=== PATIENT | male | born 1980 | race Caucasian/White ===

== ENCOUNTER → 2020-08-17 08:19 | Outpatient (CLI) | payer OTHER, MEDICAID, SELFPAY ==
--- NOTE | 2020-08-17 09:38 | DI.CT.S_ITS ---
PROCEDURE: CT CHEST ABD PEL W CON INDICATIONS: abdominal pain/luts TECHNIQUE: After the administration of oral and intravenous contrast, 5 mm thick sections acquired from the lung apices to the symphysis. 5 mm coronal and sagittal reformats were performed, with additional 7 mm coronal MIP reformats through the lungs. For radiation dose reduction, the following was used: automated exposure control, adjustment of mA and/or kV according to patient size. COMPARISON: None. FINDINGS: Image quality: Excellent. CHEST: Lungs and pleura: No acute airspace opacities. No pleural effusions or pneumothorax. Central and peripheral airways appear patent and normal in caliber. Mediastinum: Heart size is normal. No pericardial effusion. No mediastinal or hilar adenopathy by size criteria. Thoracic aorta and central pulmonary arteries are normal in size. Esophagus is normal in caliber. No hiatal hernia. Chest wall: No axillary or supraclavicular adenopathy by size criteria. Thyroid gland is normal where visualized. ABDOMEN: Solid organs: Liver is mildly enlarged measuring 21.1 centimeters in long axis. Liver is normal in enhancement. Focal fatty infiltration of the liver noted adjacent to the falciform ligament. Gallbladder contains small gallstones. Biliary system is non dilated. Pancreas enhances normally. Spleen is enlarged measuring 14.6 centimeters and long axis. No focal mass lesions identified in the spleen. Spleen demonstrates normal postcontrast enhancement. No adrenal nodules. Kidneys demonstrate normal size and enhancement, without hydronephrosis. Peritoneum and bowel: Bowel loops demonstrate normal wall thickness and caliber. Few scattered colonic diverticuli without definite diverticulitis. Anastomotic sutures noted at the junction of the sigmoid colon and rectum. No free fluid or air. Nodes and vessels: No retroperitoneal or mesenteric adenopathy by size criteria. Aorta and inferior vena cava are normal in size. Scattered atherosclerotic calcifications involving the abdominal and pelvic vasculature. Miscellaneous: No ventral hernias. PELVIS: Genitourinary: Bladder wall thickness is normal. Prostate is mildly enlarged measuring 4.1 centimeters x 5.8 centimeters. Prostatic calcifications noted. Miscellaneous: No inguinal hernias or adenopathy. Bones: No suspicious bony lesions. No vertebral body compression fractures. IMPRESSION: 1. No acute disease process. 2. Mild hepatosplenomegaly. 3. Cholelithiasis. 4. Colonic diverticulosis without evidence of diverticulitis. 5. No free fluid or free air. 6. No lung consolidation or pleural effusions. 7. No dilated loops of bowel. 8. No lymphadenopathy based on size criteria. Dictated by: Vianca Hopson MD, PhD on 08/17/2020 at 9:26 Approved by: Vianca Hopson MD, PhD on 08/17/2020 at 10:03
== END ==
PROVIDERS: Family Provider Family Medicine; PCP Family Medicine; Referring Provider Family Medicine; Visit Provider Specialist
DX: R10.9 Unspecified abdominal pain (principal); R39.9 Unspecified symptoms and signs involving the genitourinary system; R16.2 Hepatomegaly with splenomegaly, not elsewhere classified; K80.20 Calculus of gallbladder without cholecystitis without obstruction; K57.90 Diverticulosis of intestine, part unspecified, without perforation or abscess without bleeding
CPT/HCPCS: 71260; 74177; Q9967

== ENCOUNTER → 2020-09-21 14:17 | Outpatient (CLI) | payer OTHER, MEDICAID, SELFPAY ==
[2020-09-21 16:50] LABS: Prostate Specific Antigen 1.37 ng/mL (0.10-4.00)
== END ==
PROVIDERS: Family Provider Family Medicine; PCP Family Medicine; Referring Provider Specialist; Visit Provider Specialist
DX: R97.20 Elevated prostate specific antigen [PSA] (principal)
CPT/HCPCS: 36415; 84153

== ENCOUNTER → 2020-09-28 12:45 | Outpatient (CLI) | payer OTHER, MEDICAID, SELFPAY | PROVIDERS: Family Provider Family Medicine; PCP Family Medicine; Visit Provider Specialist | DX: N39.0 Urinary tract infection, site not specified (principal); R39.9 Unspecified symptoms and signs involving the genitourinary system; N39.43 Post-void dribbling | CPT/HCPCS: 52000; 81002; 87086; 99213 ==

== ENCOUNTER → 2020-10-21 10:21 | Outpatient (CLI) | payer OTHER, MEDICAID, SELFPAY ==
[2020-10-21 11:49] LABS: COVID19 -Nasal RAPID Negative (Negative)
== END ==
PROVIDERS: Family Provider Family Medicine; PCP Family Medicine; Visit Provider Surgery
DX: Z20.822 Contact with and (suspected) exposure to COVID-19 (principal)
CPT/HCPCS: 87635; C9803

== ENCOUNTER 2020-10-22 14:06 | Day surgery (SDC) | payer OTHER, MEDICAID, SELFPAY ==
[2020-10-22] VITALS (7 sets, daily range): BP systolic 118–132; BP diastolic 80–87; PULSE 60–78; RESP 12–16; TEMP 36.5–36.7; O2SAT 93–100; BMI 24.3
--- NOTE | 2020-10-22 | PATH_ITS ---
[facility] Accession Number: [id number] . 01 Material submitted: . body - RANDOM BIOPSIES . 02 Diagnosis: Random Biopsies: Colonic mucosa with no diagnostic abnormality. Negative for active, chronic, and microscopic colitis. Negative for dysplasia and malignancy. . MRV 10/26/2020 1038 Local . 02 Electronically signed: . Tawana Hernandez MD, Pathologist NPI- [id number] . 01 Gross description: . RANDOM BIOPSIES: Received in formalin are 3 fragment(s) of rodgers, soft tissue measuring 0.1 x 0.1 x 0.1 cm to 0.3 x 0.2 x 0.2 cm submitted entirely in 1 cassette(s) /ZACHARIAH 10/23/2020 2319 Local . 02 Pathologist provided ICD-10: K62.1 . 02 CPT . 788547 Performed at: 01 [facility] [address], [place], [place] [id number] MD Joaquin Aguilar MD Phone: [phone] Performed at: 02 [facility] [address] [place], [place] [id number] MD Pia Ferraro MD Phone: [phone]
--- NOTE | 2020-10-22 15:48 | PM.PREOP ---
Pre-operative Note Interval Note History & Physical reviewed/Exam performed by Physician: Yes Changes to H&P: No
--- NOTE | 2020-10-22 16:24 | PM.OP.ENDO ---
Operative Date/Time/Diagnoses Date of procedure: 10/22/20 Time of procedure: 16:24 Pre-op diagnosis: rectal bleeding Post-op diagnosis: same Procedure & Clinicians Study performed: colonoscopy Same procedure as scheduled: Yes Indications: 40M with abdodminal pain and rectal bleeding Surgeon: Favian Watkins Procedure Notes Procedure in detail: Medications: Conscious sedation using 10mg IV midazolam and 200mcg IV of fentanyl The history and physical was performed/updated and the patient is ASA class is *2 The procedure was discussed in detail with the patient. Potential risks complications including infection, bleeding, missed diagnosis, perforation, need for surgery, and were explained. Their questions were answered and informed consent was obtained. Patient was brought to the procedure room and placed standard monitoring equipment. The patient's vital signs were monitored continuously throughout the entire procedure. Prior to starting time-out was performed. The patient was placed in the left lateral recumbent position. Procedural sedation was administered. Examination began with a thorough inspection of the perianal area there was no evidence of fissures, fistulae, external hemorrhoids or cutaneous malignancy. The colonoscopy scope was then placed into the anal canal and was advanced to the cecum, which was identified by the ileocecal valve, the appendiceal orifice and the confluence of the taenia. The scope was then slowly withdrawn examining colon thoroughly in all directions, irrigating it of any residual stool. No masses or polyps Sigmoid anastamosis patent Diverticulosis Grade 2 hemorrhoids Random colonic biopsies taken No obvious colitis No active hemorrhage The patient tolerated the procedure well. They will be discharged once criteria are met. The prep was of good/excellent quality. The withdrawl time was 7 minutes. The sedation time was 22 minutes. Specimen(s): other (random colonic biopsies) Complications: none Impression: Hemorrhoids Post-procedure Recommendations: High fiber diet, Will call with biopsy results and Other recommendation (can consider hemorrhoid banding if persistent bleeding) Disposition: same day surgery
[2020-10-22] MEDS: fentaNYL 250 MCG/5 ML INJ IV (16:26)
[2020-10-22] MEDS: MIDAZOLAM 5 MG/5 ML VIAL IV (16:27)
== END 2020-10-22 17:05 | disposition home or self-care (01) ==
PROVIDERS: Family Provider Family Medicine; PCP Family Medicine; Referring Provider Surgery; Visit Provider Surgery
PROC: 0DJD8ZZ Inspection of Lower Intestinal Tract, Via Natural or Artificial Opening Endoscopic (ICD-10-PCS; CPT 45378; principal; 2020-10-22 15:15)
DX: K57.30 Diverticulosis of large intestine without perforation or abscess without bleeding (principal); K64.1 Second degree hemorrhoids
CPT/HCPCS: 45380; 99152; J2250; J3010

== ENCOUNTER 2021-01-04 11:45 | Day surgery (SDC) | payer OTHER, MEDICAID, SELFPAY ==
[2020-12-31 08:25] VITALS: BMI 23.9
[2021-01-04] VITALS (11 sets, daily range): BP systolic 126–154; BP diastolic 78–99; PULSE 65–96; RESP 8–16; TEMP 36.2–36.7; O2SAT 66–99; BMI 23.9
--- NOTE | 2021-01-04 | PATH_ITS ---
[facility] Accession Number: [id number] . 01 Material submitted: . prostate - PROSTATE CHIPS . 02 Diagnosis: Prostate, Chips, TURP: Benign prostatic glands and stroma, and urothelial mucosa with no evidence of neoplasm. V 01/06/2021 1203 Local . 02 Electronically signed: . Pia Ferraro MD, Pathologist NPI- [id number] . 01 Gross description: . The specimen is received in formalin, labeled prostate chips and consists of an 8-gram, 5.0 x 4.0 x 1.0 cm aggregate of rodgers-pink partially cauterized fragments of soft tissue, which is entirely submitted in cassettes A1-A2. (EA:cmc10 [id number]) /V 01/05/2021 1152 Local . 02 Pathologist provided ICD-10: N32.0 . 02 CPT . 884501 Performed at: 01 [facility] [address] [id number] MD Joaquin Aguilar MD Phone: [phone] Performed at: [facility] [address] [place], [place] [id number] MD Pia Ferraro MD Phone: [phone]
--- NOTE | 2021-01-04 11:48 | PM.PREOP ---
Pre-operative Note Interval Note History & Physical reviewed/Exam performed by Physician: Yes Changes to H&P: No
[2021-01-04 12:52] LABS: COVID19 -Nasal RAPID Negative (Negative)
[2021-01-04] MEDS: LACTATED RINGERS 1,000 ML 42 ML IV (13:11)
--- NOTE | 2021-01-04 13:41 | SUR.OPER ---
Lithotomy on padded OR bed, head on pillow, arms secured on padded arm boards at <90 degrees abduction. Legs secured in padded yellow fins stirrups.
[2021-01-04] MEDS: CEFAZOLIN 1 GM VIAL 2 GM IV (13:44)
[2021-01-04] MEDS: BELLADONNA/OPIUM SUPPOSITORIES 1 EACH PR (13:45)
--- NOTE | 2021-01-04 14:19 | P.OP_ITS ---
Operative Date/Time/Diagnoses Date of procedure: 01/04/21 Time of procedure: 14:20 Pre-op diagnosis: Bladder outlet obstruction Post-op diagnosis: same Procedure & Clinicians Procedure: 1. Transurethral resection of prostate Same procedure as scheduled: Yes Indications: Bladder outlet obstruction Surgeon: Sachin Jenkins Click Yes if Unassisted: Yes Anesthesia Type: General Operative Notes Findings: 1. Urethra-normal caliber without annular stricture or lesion. 2. External sphincter-coapted. 3. Fbisqofs-4-2.5 cm length with elevated median bar and moderate lateral lobe hyperplasia. Numerous small calculi recovered during resection of the prostate. 4. Bladder-1+ trabeculation. Normal ureteral orifices bilaterally. No stone, tumor, or foreign body seen. Closure Type: not applicable Specimen(s): other (Prostate chips) Applied: catheter (Number [address] [place]o catheter.) Estimated Blood Loss (mL): 3 Blood products transfused: none Procedure in detail: The patient was positioned supine and administered general anesthesia. He was then repositioned semi lithotomy and the lower abdomen, genitalia, and groin were prepped and draped sterile fashion. Twenty-five Syriac resectoscope was then passed lower urinary tract with the findings as described above. The sheath was then fitted with can element and resection loop. TUR of the median bar and lateral lobes was then conducted from the bladder neck to verumontanum. At no point was resection taken more distal than the verumontanum nor deeper than the surgical capsule. The anterior tissue was left unresected. All chips were then collected with the [employer] evacuator and manually with the resecting loop. The bladder was then partially filled and the resectoscope removed. A [address] hematuria catheter was then inserted and lower urinary track. The balloon was inflated to 30 cc. The catheter was placed to gravity drainage. The patient was then repositioned in supine, was awakened, and transferred to a respanola for transportation to recovery. Complications: none Post-operative Condition: stable Disposition: PACU Plan for aftercare: Discharge home
[2021-01-04] MEDS: OXYCODONE IR 5 MG TABLET PO ×2 (14:41→15:14)
[2021-01-04] MEDS: LIDOCAINE 2% (GLYDO) 6 ML GEL TOP (14:53)
[2021-01-04] MEDS: fentaNYL 100 MCG/2 ML INJ IV ×2 (14:58→15:04)
== END 2021-01-04 15:49 | disposition home or self-care (01) ==
PROVIDERS: PCP Family Medicine; Referring Provider Specialist; Visit Provider Specialist
PROC: 0VT08ZZ Resection of Prostate, Via Natural or Artificial Opening Endoscopic (ICD-10-PCS; CPT 52601; principal; 2021-01-04 13:15)
DX: N32.0 Bladder-neck obstruction (principal); Z20.822 Contact with and (suspected) exposure to COVID-19
CPT/HCPCS: 52601; 87635; J0690; J1100; J2405; J2704; J3010

== ENCOUNTER → 2021-02-09 16:11 | Outpatient (CLI) | payer OTHER, MEDICAID, SELFPAY | PROVIDERS: PCP Family Medicine; Visit Provider Specialist | DX: R30.0 Dysuria (principal); Z48.89 Encounter for other specified surgical aftercare | CPT/HCPCS: 81002; 87086 ==

== ENCOUNTER → 2021-03-01 09:43 | Outpatient (CLI) | payer OTHER, MEDICAID, SELFPAY ==
[2021-03-01 12:13] LABS: COVID19 -Nasal RAPID Negative (Negative)
== END ==
PROVIDERS: PCP Family Medicine; Visit Provider Surgery
DX: Z20.822 Contact with and (suspected) exposure to COVID-19 (principal)
CPT/HCPCS: 87635; C9803

== ENCOUNTER 2021-03-02 06:38 | Day surgery (SDC) | payer OTHER, MEDICAID, SELFPAY ==
[2021-02-18 14:39] VITALS: BMI 25.1
[2021-03-02] VITALS (11 sets, daily range): BP systolic 135–158; BP diastolic 62–104; PULSE 83–101; RESP 14–20; TEMP 36.4–37.1; O2SAT 94–98; BMI 25.1
--- NOTE | 2021-03-02 | PATH_ITS ---
[facility] Accession Number: [id number] . 01 Material submitted: . gallbladder - GALLBLADDER . 02 Diagnosis: Gallbladder, Cholecystectomy: Chronic cholecystitis with cholelithiasis. Negative for dysplasia and malignancy. V 03/04/2021 1017 Local . 02 Electronically signed: . Pia Ferraro MD, Pathologist NPI- [id number] . 01 Gross description: . The specimen is received in formalin, labeled gallbladder and consists of a 6.0 x 3.1 x 2.0 cm previously disrupted gallbladder with a 0.2 cm in diameter cystic duct. The serosa is rodgers-pink and wrinkled. Opening reveals minimal green viscous bile with five black bosselated choleliths measuring 1.5 x 0.9 x 0.4 cm in aggregate and ranging from 0.2-0.3 cm. The mucosa is rodgers-green and velvety and the wall thickness measures 0.1 cm. [employer] sections are submitted, to include the en face cystic duct margin (blue), in cassette A1. (EA:cmc10 [id number]) /V 03/03/2021 1050 Local . 02 Pathologist provided ICD-10: K80.60 . 02 CPT . 614464 Performed at: 01 [facility] [address], [place], [place] [id number] MD Joaquin Aguilar MD Phone: [phone] Performed at: 02 [facility] [address] [place], [place] [id number] MD Pia Ferraro MD Phone: [phone]
[2021-03-02] MEDS: LACTATED RINGERS 1,000 ML 42 ML IV (07:20)
--- NOTE | 2021-03-02 07:34 | PM.PREOP ---
Pre-operative Note Interval Note History & Physical reviewed/Exam performed by Physician: Yes Changes to H&P: No
[2021-03-02] MEDS: CEFAZOLIN 1 GM VIAL 2 GM IV (08:05)
--- NOTE | 2021-03-02 08:12 | SUR.OPER ---
Supine on padded OR bed, head on pillow, safety belt at thigh, left arm padded and tucked at side. Right arm secured on padded arm board <90 degrees abduction, gel pad under arm. Legs uncrossed. Padded footboard in place, gel pad placed under bilateral feet/heels. Tape over blanket to secure lower legs.
[2021-03-02] MEDS: BUPIVACAINE 0.25% (PF) VIAL 30 ML INJ (08:21)
--- NOTE | 2021-03-02 09:29 | P.OP_ITS ---
Operative Date/Time/Diagnoses Date of procedure: 03/02/21 Time of procedure: 09:30 Pre-op diagnosis: Biliary colic Post-op diagnosis: same Procedure & Clinicians Procedure: Laparoscopic cholecystectomy Same procedure as scheduled: Yes Indications: Biliary colic Surgeon: Favian Watkins Anesthesia Type: General Operative Notes Findings: Chronic cholecystitis, adhesions of the omentum to the right upper quadrant. Specimen(s): other (Gallbladder) Estimated Blood Loss (mL): 100 Procedure in detail: The patient was placed supine on the table and bilateral lower extremity compression devices were applied. Anesthesia was induced they were intubated with an endotracheal tube and received 2g of Ancef. A time-out was performed. They were prepped and draped in sterile fashion. An infraumbilical incision was made, the umbilical stalk was elevated and the fascia was sharply incised entering the abdomen atraumatically. A blunt tip 12mm balloon trocar was then inserted, pneumoperitoneum was established and inspection of the abdomen demonstrated no evidence of injury. They were placed head up and right side up and then a 11 mm port was placed high in the epigastrium and two 5mm in the right upper quadrant. There were adhesions between the omentum and right upper quadrant and gallbladder suggestive chronic cholecystitis. The adhesions were taken down carefully. The gallbladder was grasped by the fundus and retracted over the liver and retracted laterally by the infundibulum. Using electrocautery the lateral plane between the gallbladder and the liver was opened towards the fundus. The gallbladder was then retracted laterally and the medial plane was developed in the same manner. With the gallbladder mobilized the bottom of the cystic plate was visualized. The hepatocystic triangle was meticulosly skeletonized using hook electrocautery of all fat and fibrous tissue from both the front and the back. Only two structures were then clearly seen entering the gallbladder the cystic duct and the cystic artery. With the critical view of safety fully established the cystic duct was clipped twice proximally and once distally using the 10 mm hemolock clip applied under direct visualization and then sharply divided. The cystic artery was divided in the same fashion. The gallbladder was removed from the liver bed using electro cautery. The liver bed was then inspected for hemostasis and this was achieved. There was some oozing from near the divided cystic artery that stopped with direct pressure for 5 minutes, this was reinforced with a sheet of surgicel. The abdomen was irrigated with sterile saline and inspection was made that showed the clips in good position. The specimen was removed using Endo-Catch. The abdomen was desufflated. The umbilical fascia was closed with 0 Vicryl in a [id number] fashion under direct visualization. Skin incisions were irrigated and closed with 4-0 M onocryl. 30 ml of 0.25% bupivacaine was infiltrated into the subcutaneous tissue of the incisions. The wounds were sealed with Dermabond. Patient emerged from anesthesia was extubated and transferred to recovery in stable condition. The sponge and instrument count at the end of the operation was correct. Complications: none Post-operative Condition: stable Disposition: same day surgery
[2021-03-02] MEDS: fentaNYL 100 MCG/2 ML INJ IV ×4 (09:40→10:40)
[2021-03-02] MEDS: ONDANSETRON 4 MG/2 ML INJ IV (09:41)
[2021-03-02] MEDS: HYDROMORPHONE 2 MG INJ IV ×4 (09:46→10:42)
[2021-03-02] MEDS: OXYCODONE/ACETAMINOPHEN 5/325 TABLET 1 TAB PO ×2 (09:48→10:52)
--- NOTE | 2021-03-02 11:19 | SUR.PHASEII ---
assumed care of pt from Micki BOUDREAUX. Pt states pain is a 5 out of 1-10 scale .
--- NOTE | 2021-03-02 12:09 | SUR.PHASEII ---
pt given discharge instructions . pt states he understands discharge instructions. Pt state he understands discharge instructions. .Pt to be discharged with .
== END 2021-03-02 12:20 | disposition home or self-care (01) ==
PROVIDERS: PCP Family Medicine; Referring Provider Surgery; Visit Provider Surgery
PROC: 0FT44ZZ Resection of Gallbladder, Percutaneous Endoscopic Approach (ICD-10-PCS; CPT 47562; principal; 2021-03-02 07:45)
DX: K80.10 Calculus of gallbladder with chronic cholecystitis without obstruction (principal); N40.1 Benign prostatic hyperplasia with lower urinary tract symptoms; N13.8 Other obstructive and reflux uropathy; K82.8 Other specified diseases of gallbladder
CPT/HCPCS: 47562; 82962; J0690; J1170; J2250; J2405; J2704; J3010